=== PATIENT | female | born 1955 | race Caucasian/White ===

== ENCOUNTER 2018-03-12 12:15 | Emergency (ER) | payer MEDICARE ==
--- NOTE | 2018-03-12 12:57 | ERPHSYRPT ---
- History of Present Illness Time Seen by Provider: 03/12/18 12:49 Source: patient Exam Limitations: no limitations Patient Subjective Stated Complaint: c/o bronchitis symptoms for one week. states she got better and now is getting worse. also having some diarrhea and vomiting since yesterday. Triage Nursing Assessment: to room per w/c but then was able to walk to bathroom. occasional dry cough noted. clear rhinitis. no vomiting noted at present time. skin w/d, color normal. resp nonlabored. Physician History: The patient is a 62-year-old female complaining of a cough, sore throat, runny nose, and not feeling well for the last 24 hours. She wants to know she has influenza. She has not received an influenza vaccination yet this year. She had bronchitis a couple weeks ago that resolved. She took NyQuil that upset her stomach causing her to vomit last night. Her past medical history significant for lupus, hypertension, and asthma. She has been a smoker. Timing/Duration: yesterday, gradual onset Cough Quality/Degree: dry cough Possible Cause: occasional episodes, smoke exposure Modifying Factors: Improves With: coughing Associated Symptoms: nasal drainage, sore throat, No fever Allergies/Adverse Reactions: cortisone [Cortisone] Adverse Reaction (Verified 03/12/18 12:33) migraine for 3 days Home Medications: Albuterol Sulfate Mdi [Proair Hfa MDI] 8.5 gm IH UD PRN 04/01/13 [History] Hydroxychloroquine Sulfate [Plaquenil] 200 mg PO BID 04/01/13 [History] Cetirizine HCl [Zyrtec] 10 mg PO DAILY 03/12/18 [History] Cyanocobalamin (Vitamin B-12) [Vitamin B12] 1,000 mcg PO DAILY 03/12/18 [History ] Ergocalciferol (Vitamin D2) [Vitamin D2] 50,000 unit PO Q7D 03/12/18 [History] Lisinopril/Hydrochlorothiazide [Lisinopril-Hctz 20-12.5 mg Tab] 1 each PO DAILY 03/12/18 [History] Hx Tetanus, Diphtheria Vaccination/Date Given: Yes Hx Influenza Vaccination/Date Given: No Hx Pneumococcal Vaccination/Date Given: No Immunizations Up to Date: No - Review of Systems Constitutional: No Fever, No Chills Eyes: No Symptoms Ears, Nose, & Throat: Nose Discharge, Throat Pain Respiratory: Cough, No Dyspnea Cardiac: No Chest Pain, No Edema, No Syncope Abdominal/Gastrointestinal: No Abdominal Pain, No Nausea, No Vomiting, No Diarrhea Genitourinary Symptoms: No Symptoms Musculoskeletal: No Back Pain, No Neck Pain Skin: No Rash Neurological: No Dizziness, No Focal Weakness, No Sensory Changes Psychological: No Symptoms Endocrine: No Symptoms Hematologic/Lymphatic: No Symptoms Immunological/Allergic: No Symptoms All Other Systems: Reviewed and Negative - Past Medical History Pertinent Past Medical History: Yes Neurological History: No Pertinent History ENT History: No Pertinent History Cardiac History: High Cholesterol Respiratory History: COPD Endocrine Medical History: No Pertinent History Musculoskeletal History: Fibromyalgia GI Medical History: Diverticulitis History: No Pertinent History Psycho-Social History: Anxiety, Depression Female Reproductive Disorders: No Pertinent History Other Medical History: lupus - Past Surgical History Past Surgical History: Yes Neuro Surgical History: No Pertinent History Cardiac: No Pertinent History Respiratory: No Pertinent History Gastrointestinal: Appendectomy Genitourinary: No Pertinent History Musculoskeletal: No Pertinent History Female Surgical History: Tubal Ligation - Social History Smoking Status: Never smoker How long have you smoked: 25 YEARS Exposure to second hand smoke: No Drug Use: marijuana Patient Lives Alone: Yes - Female History Hx Now: No - Nursing Vital Signs Nursing Vital Signs: Initial Vital Signs Temperature 98.6 F 03/12/18 12:25 Pulse Rate 98 H 03/12/18 12:25 Respiratory Rate 18 03/12/18 12:25 Blood Pressure 150/89 03/12/18 12:25 O2 Sat by Pulse Oximetry 96 03/12/18 12:25 Pain Scale Pain Intensity 3 - Physical Exam General Appearance: no apparent distress, alert Eye Exam: PERRL/EOMI, eyes nml inspection Ears, Nose, Throat Exam: moist mucous membranes, pharyngeal erythema, No tonsillar exudate Neck Exam: normal inspection, non-tender, supple, full range of motion Respiratory Exam: normal breath sounds, lungs clear, No respiratory distress Cardiovascular Exam: regular rate/rhythm, normal heart sounds Gastrointestinal/Abdomen Exam: soft, No tenderness Pelvic Exam: not done Rectal Exam: not done Back Exam: normal inspection, No CVA tenderness, No vertebral tenderness Extremity Exam: normal inspection, normal range of motion Neurologic Exam: alert, oriented x 3, cooperative, normal mood/affect, sensation nml, No motor deficits Skin Exam: normal color, warm, dry, No rash Lymphatic Exam: No adenopathy SpO2 Interpretation: normal SpO2: 96 Oxygen Delivery: Room Air - Radiology Exams Chest X-ray Interpretation: Interpreted by me, Negative, No Pneumonia, No Infiltrates Ordered Tests: Active Orders 24 hr Category Date Time Status CHEST 2 VIEWS (PA AND LAT) Stat Exams 03/12/18 13:28 Completed Lab/Rad Data: Laboratory Results 03/12/18 Range/Units Unknown Influenza Type A Ag NEGATIVE (NEGATIVE) Influenza Type B Ag NEGATIVE (NEGATIVE) RSV (PCR) NEGATIVE (Negative) - Progress Progress: unchanged Air Movement: good Blood Culture(s) Obtained: No Antibiotics given: No Counseled pt/family regarding: lab results, diagnosis, rad results - Departure Time of Disposition: 14:51 Departure Disposition: Home Clinical Impression: Bronchitis Condition: Stable Critical Care Time: No Referrals: ACE ROSADO [Primary Care Provider] - Additional Instructions: You have bronchitis. Take azithromycin 500 mg on day one. Then take azithromycin 250 mg every day for days 2 through 5. Take Tessalon 100 mg every 8 hours as needed for cough. By the way, please get your flu shot in March. Prescriptions: Benzonatate [Tessalon Perle] 100 mg PO Q8H PRN PRN #12 capsule PRN Reason: Cough Azithromycin 250 mg [Zithromax 250 MG TABLET] 250 mg PO ZPACK #6 tablet
[2018-03-12 13:47] LABS: INFLUENZA A NEGATIVE (NEGATIVE); INFLUENZA B NEGATIVE (NEGATIVE); RESPIRATORY SYNCTIAL VIRUS NEGATIVE (Negative)
[2018-03-12 14:03] VITALS: BP 134/68; PULSE 94
--- NOTE | 2018-03-12 14:26 | XRAY ---
Exam: Two-view chest from 03/12/2018. Comparison: AP portable chest film from 08/11/2010. Indication: Cough, fever, history of COPD. Findings: Upright PA and lateral chest films were obtained. The heart size and contour are normal. The onur and mediastinal structures appear unremarkable. There is average inflation of the lungs. A couple small calcified granulomas are seen within the peripheral right midlung field as well as one small calcified granuloma within the peripheral right upper lobe. I don't believe this represents a significant change. No air space infiltrates, vascular congestion, pneumothorax, or pleural fluid is seen. Mild bone demineralization, mid dorsal kyphosis, and mild thoracic vertebral endplate spurring are seen. Impression: 1. No infiltrates to suggest focal pneumonia or other acute cardiopulmonary disease is seen. 2. Other incidental findings, as discussed above.
[2018-03-12 14:51] VITALS: O2SAT 96
== END 2018-03-12 15:15 | disposition home or self-care (01) ==
LOC: ED 12:15
DX: J40 Bronchitis, not specified as acute or chronic (principal); Z79.899 Other long term (current) drug therapy
CPT/HCPCS: 71046; 87631; 99284

== ENCOUNTER 2024-08-26 20:14 | Emergency (ER) | payer MEDICARE, OTHER ==
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
[2024-08-26 20:40] VITALS: TEMP 98.6
[2024-08-26 20:46] LABS: Absolute Neutrophil Ct (ANC) 8.38 x10^3/uL (1.56-6.13); BASOPHIL % 0.4 % (0.1-1.2); Basophil (Absolute #) 0.04 x10^3/uL (0.01-0.08); Eosinophil % 0.5 % (0.7-5.8); Eosinophil (Absolute #) 0.05 x10^3/uL (0.04-0.36); Hematocrit 37.9 % (34.1-44.9); IMMATURE GRAN # 0.05 x10^3u/L (0.001-0.031); IMMATURE GRAN % 0.5 % (0.001-0.429); Lymphocyte (Absolute #) 1.19 x10^3/uL (1.18-3.74); Lymphocytes % 11.6 % (19.3-51.7); Mean Cell Volume 89.8 fL (79.4-94.8); Mean Corpuscular Hemoglobin 30.8 pg (25.6-32.2); Mean Corpuscular Hgb Concent. 34.3 g/dL (32.2-35.5); Mean Platelet Volume 11.1 fL (9.4-12.3); Monocyte (Absolute #) 0.57 x10^3/uL (0.24-0.86); Monocytes % 5.5 % (4.7-12.5); Neutrophil % 81.5 % (34.0-71.1); Platelet Count 197 x10^3/uL (182-369); Red Blood Count 4.22 x10^6/uL (3.93-5.22); White Blood Count 10.3 x10^3/uL (3.98-10.04)
[2024-08-26] MEDS: SUBLIMAZE 100 MCG/2 ML IV ONE (20:53)
[2024-08-26 20:58] LABS: ALBUMIN 4.3 g/dL (3.5-5.0); BILIRUBIN,TOTAL 0.4 mg/dL (0.2-1.3); Creatinine 1 0.74 mg/dL (0.52-1.04); Potassium 3.9 mmol/L (3.5-5.1); Total Protein 6.8 g/dL (6.3-8.2)
[2024-08-26] MEDS ORDERED: Hydromorphone 1 mg/ml Injection ONE (22:25)
[2024-08-26] MEDS: Hydromorphone 1 mg/ml Injection IV ONE (22:26)
[2024-08-26] MEDS ORDERED: Zofran 4 MG/2 ML VIAL ONE (22:56)
[2024-08-26] MEDS: Zofran 4 MG/2 ML VIAL IV ONE (22:58)
[2024-08-27] MEDS ORDERED: PERCOCET TABLET 5/325MG ONE (00:26)
[2024-08-27] MEDS: PERCOCET TABLET 5/325MG PO STA (00:27)
[2024-08-27 00:28] VITALS: BP 132/85; PULSE 88; RESP 25; O2SAT 97
--- NOTE | 2024-08-27 08:40 | XRAY ---
Indication: Status post fall/injury. Comparison: None 3 view left elbow demonstrates osteopenia. No acute bony, articular, or soft tissue abnormalities.
--- NOTE | 2024-08-27 08:42 | XRAY ---
Indication: Status post fall/injury. Comparison: None 3 view right ankle demonstrates osteopenia, small plantar heel spur, and anterolateral soft tissue swelling. No acute bony, articular, or soft tissue abnormalities.
--- NOTE | 2024-08-27 08:42 | XRAY ---
Indication: Status post fall/injury. Comparison: None 3 view left wrist demonstrates comminuted/displaced fracture involving distal radius with intra-articular extension and soft tissue swelling. Also mildly displaced ulnar styloid fracture. Elsewhere osteopenia and mild/moderate 1st metacarpal multangular scaphoid degenerative changes.
--- NOTE | 2024-08-27 08:44 | XRAY ---
Indication: Status post fall/injury. Comparison: None 2 view left forearm demonstrates osteopenia. Distal radius/ulna fractures reported on wrist exam. No other bony, articular, or soft tissue abnormalities.
--- NOTE | 2024-08-27 08:46 | XRAY ---
Indication: Status post fall/injury. Comparison: None 3 nonweightbearing views right foot demonstrates osteopenia, moderate 1st MTP degenerative changes, small plantar heel spur, and incidental tiny cuboid accessory ossicle. No acute bony, articular, or soft tissue abnormalities.
== END 2024-08-27 01:04 | disposition home or self-care (01) ==
LOC: ED 20:14
DX: S52.572A Other intraarticular fracture of lower end of left radius, initial encounter for closed fracture (principal); S52.612A Displaced fracture of left ulna styloid process, initial encounter for closed fracture; S93.401A Sprain of unspecified ligament of right ankle, initial encounter; W13.8XXA Fall from, out of or through other building or structure, initial encounter; I10 Essential (primary) hypertension; E78.5 Hyperlipidemia, unspecified; Z79.899 Other long term (current) drug therapy; Z79.891 Long term (current) use of opiate analgesic
CPT/HCPCS: 29125; 36415; 73070; 73090; 73110; 73610; 73630; 80053; 85025; 96374; 96375; 99284; J1171; J2405; J3010; A9270-GY

== ENCOUNTER 2024-09-02 06:10 | Day surgery (SDC) | payer MEDICARE, OTHER ==
[2024-09-02 06:34] VITALS: RESP 18
[2024-09-02] MEDS: celeBREX 100 MG PO ONE (06:38)
[2024-09-02] MEDS: NEURONTIN PO ONE (06:38)
[2024-09-02] MEDS: Pepcid 20 MG PO ONE (06:39)
[2024-09-02] MEDS: TYLENOL EXTRA STRENGTH 500 MG PO ONE (06:39)
[2024-09-02] MEDS: Transderm Scop 1.5MG Patch TOP ONE (06:39)
[2024-09-02] MEDS: Decadron 4 MG PO ONE (06:39)
[2024-09-02] MEDS: Lactated Ringers 1,000 ML IV SCH (06:40)
[2024-09-02] MEDS ORDERED: SUBLIMAZE 100 MCG/2 ML ONE (08:34)
[2024-09-02] MEDS ORDERED: Versed 2 MG/2 ML Injection ONE (08:34)
[2024-09-02] MEDS ORDERED: Xylocaine-Mpf 2% 5 Ml Vial ONE (08:35)
[2024-09-02] MEDS ORDERED: Marcaine 0.5%/Epinephrine 10 ML ONE (08:35)
[2024-09-02] MEDS ORDERED: propofoL IV ONE (08:35)
[2024-09-02] MEDS ORDERED: BRIDION 200MG/2ML IV ONE (11:46)
[2024-09-02] MEDS ORDERED: TORAdol 30 mg Injection ONE (11:46)
[2024-09-02] MEDS ORDERED: dexAMETHasone sodium phosphate ONE (11:46)
[2024-09-02] MEDS ORDERED: Zofran 4 MG/2 ML VIAL ONE ×2 (11:46→12:19)
--- NOTE | 2024-09-02 11:59 | XRAY ---
Indication: Left wrist/radius ORIF surgery. Intraoperative fluoroscopy provided for 46 seconds. 3 digital spot images submitted for interpretation demonstrates anterior fixation plate and multiple screws fixating distal radius fracture. Fracture apposition/alignment near-anatomic. Incidental displaced fracture ulnar styloid. Correlate with intraoperative findings/report.
--- NOTE | 2024-09-02 12:01 | XRAY ---
Indication: Left radial head replacement. Intraoperative fluoroscopy provided for 3 seconds. 2 digital spot images submitted for interpretation demonstrates radial head prosthesis in situ with adjacent cutaneous larry. Correlate with intraoperative findings/report.
[2024-09-02] MEDS ORDERED: MORPHINE SULFATE 2 MG INJ ONE (12:20)
--- NOTE | 2024-09-02 12:59 | XRAY ---
46 seconds of fluoroscopy was used in surgery for a left wrist/radius ORIF surgery.
--- NOTE | 2024-09-02 12:59 | XRAY ---
3 seconds of fluoroscopy was used in surgery for a left radial head replacement.
[2024-09-02 13:00] VITALS: O2SAT 94
[2024-09-02 13:09] VITALS: BP 136/72; PULSE 83; TEMP 98
--- NOTE | 2024-09-05 08:20 | OP ---
SURGERY DATE/TIME: 09/02/2024 [id number] PREOPERATIVE DIAGNOSES: 1) Comminuted intra-articular fracture, left distal radius, closed. 2) Comminuted displaced fracture, left radial head. POSTOPERATIVE DIAGNOSES: 1) Comminuted intra-articular fracture, left distal radius, closed. 2) Comminuted displaced fracture, left radial head. PROCEDURES: 1) Left radial head replacement, Kadie ExploR system. 2) Open reduction and internal fixation of intra-articular distal radius fracture with 3 or more fragments utilizing Kadie distal radius set. SURGEON: Dl Zuñiga MD INDICATIONS: This patient was referred to us by the emergency room this week for evaluation of left wrist and elbow pain. She had fallen and injured both areas and had x-rays obtained in the ER. We reviewed the films and obtained additional x-rays which showed a highly comminuted displaced fracture of the left distal radius, as well as a fracture of the proximal radius. We obtained an additional CT scan of the proximal radius which showed comminuted displaced fracture. We recommended surgical management as outlined above. Consent was obtained. We discussed risks and benefits of operative versus nonoperative care including risks or surgery. Procedure was performed as follows. DESCRIPTION OF PROCEDURE AND FINDINGS: The patient was seen preoperatively, and the operative limb and plan were reviewed. Her arm was initialed. She was given IV antibiotics and taken to the operating room. She was then placed under general anesthesia and kept supine on an OR table with arm abducted on an arm board. We performed sterile prep and drape from the fingertip up to the axilla. We then applied a sterile tourniquet to the upper arm. We exsanguinated the limb with an Esmarch and inflated tourniquet to 250 mmHg. A 3-inch oblique incision was made over the radiocapitellar joint. We deepened this down to the muscular fascia and divided the fascia over the extensor muscles anterior to the equator of the radial head. We split the deep layer of fascia, incised the orbicular ligament, and entered the joint. Hematoma was evacuated. There was a large articular fragment of the radial head that was rotated and facing outward. We removed this fragment, which appeared to comprise approximately two-thirds of the articular surface. We carefully elevated soft tissue over the distal radius, keeping the arm pronated. Once we had a clear view of the proximal radial shaft, we cut this perpendicularly with a motorized saw. We then had excellent visualization of the joint and removed all visible loose bodies. The joint was irrigated. We then used a broaching system to broach the proximal radius. We broached up to a size 8; in this system, the maximum size was a 9. We inserted a trial stem and then side-loaded a trial radial head, 10 mm height. The head diameter was selected after comparing it to the removed fragments. We felt that this was too tight, so we removed the stem and removed a couple millimeters more of the radius before reinserting the broach. The broach was fully seated, and the trial was repeated. Flexion was improved. Full extension was achieved without difficulty. Traction on the arm would create a 2 mm gap at the radiocapitellar junction at full extension. We removed the trial, performed pulsatile lavage 1 final time, and then inserted the final implants. We then repaired the orbicular ligament with 0 Vicryl suture, followed by closure of the deep muscle layer with 0 Vicryl. We then closed the subcutaneous tissue layer with 2-0 Vicryl, and the incision was closed with larry. We wrapped this area and proceeded to address the distal radius. A volar incision was made. The tendon sheath was incised, the tendon was retracted, and access was gained to the deep space. The pronator was released from the radial border and elevated in an ulnar direction to expose the distal radius and fracture site. The fracture was highly comminuted with at least 3 visible large fragments. We selected a Kadie locking volar radial plate. The plate selected was a short length but a medium width distally. Drill guides were threaded into the distal end of the plate, and the plate was positioned along the volar radius. It was secured in position with 2 pins. We used the C-arm to check the position of the plate. The plate was micro adjusted slightly more distal and secured in place. Pleased with this position, we proceeded to secure the plate to the shaft with cortical screws. We then inserted locking screws into all of the distal holes. Additional locking screws were placed proximally. Screw lengths were checked with the C-arm. Stable fixation was achieved. We then irrigated the wound copiously and released the tourniquet. Bleeding was noted distally, and we found a small side branch from the radial vein. We proceeded to crossclamp this side branch and tied it off, and this stopped the bleeding. We irrigated the wound 1 more time and then closed that incision with a single layer of interrupted 4-0 Prolene suture. Sterile dressings with Adaptic and gauze were placed over this, followed by application of Kerlix and cast padding and a volar splint. The elbow was dressed with Adaptic, gauze, Kerlix, and an Aijt wrap. The patient was then taken to recovery room in stable condition.
== END 2024-09-02 13:32 | disposition home or self-care (01) ==
LOC: SDC 06:10
PROVIDERS: ATTEND Orthopaedic Surgery
DX: S52.502A Unspecified fracture of the lower end of left radius, initial encounter for closed fracture (principal); S52.122A Displaced fracture of head of left radius, initial encounter for closed fracture
CPT/HCPCS: 24666; 25609; 73080; 73110; 76000; 76937; C1713; C1776; J1100; J1885; J2250; J2270; J2405; J2704; J3010; A9270-GY